=== PATIENT | female | born 1975 | race Caucasian/White ===

== ENCOUNTER → 2024-10-17 17:20 | Outpatient (REF) | payer OTHER, SELFPAY | LOC: MRI 3T 17:20 | PROVIDERS: ATTENDING PHYSICIAN Psychiatry & Neurology Neurology | DX: G35 Multiple sclerosis (principal) | CPT/HCPCS: 72157; A9575 ==

== ENCOUNTER → 2024-10-18 18:17 | Outpatient (REF) | payer OTHER, SELFPAY | LOC: MRI 3T 18:17 | PROVIDERS: ATTENDING PHYSICIAN Psychiatry & Neurology Neurology | DX: G35 Multiple sclerosis (principal) | CPT/HCPCS: 70553; 72156; A9575 ==